=== PATIENT | female | born 1955 | race African-American/Black ===

== ENCOUNTER → 2016-12-28 | Outpatient (CLI) | payer OTHER ==
[2015-08-09 11:55] VITALS: BP 168/86
[~2016-12-28] MED LIST: CONTRAST GIVEN MC PRN; IOHEXOL 300 MG/ML 75 ML VIAL. IV ONE; LISI10TA2 PO; WARF5TAB7 PO
--- NOTE | 2016-12-28 16:31 | RAD ---
Indication gross hematuria. Multiphase imaging through the abdomen and pelvis was performed (CT urogram). Initially noncontrast images through the abdomen and pelvis were obtained. This was followed by portal venous phase imaging through the kidneys and, finally, delayed images through the abdomen and pelvis. Note is made of a previous examination of the abdomen and pelvis 03/01/2016. 75 cc of Omnipaque 300 was administered intravenously for this examination. No oral contrast was administered. On the initial noncontrast images no renal calculi are seen. No renal mass is appreciated. There is no hydronephrosis hydroureter or definite calcification seen along the course of either ureter. Occasional phleboliths are noted in the pelvis similar to the previous exam. On the portal venous phase images no renal mass is seen. On the delayed images the kidneys remain normal. The visualized ureters appear normal in their course and caliber. The urinary bladder is grossly unremarkable although there are fluid levels compatible with probable blood products in the dependent portion of the urinary bladder. If urinary bladder pathology is suspect cystoscopy should be considered. The lung bases are clear. The liver and spleen are unremarkable and the gallbladder appears grossly normal. No adrenal pathology is seen. The pancreas appears unremarkable. No acute finding in the abdomen or pelvis is seen. IMPRESSION: No acute finding seen in the abdomen or pelvis. Unremarkable kidneys. Probable blood products (given the history) in the dependent portion of the urinary bladder PQRS Compliance Statement: One or more of the following individualized dose reduction techniques were utilized for this examination: 1. Automated exposure control 2. Adjustment of the mA and/or kV according to patient size 3. Use of iterative reconstruction technique
== END | disposition home or self-care (01) ==
LOC: CT 14:39
PROVIDERS: ATTEND Nurse Practitioner Adult Health
DX: F19.20 Other psychoactive substance dependence, uncomplicated (principal); R31.0 Gross hematuria
CPT/HCPCS: 74178; Q9967

== ENCOUNTER 2017-01-25 15:35 | Emergency (ER) | payer OTHER ==
[~2017-01-25] VITALS: Ht 167.6 cm; Wt 73.6 kg
[~2017-01-25 15:35] MED LIST changes: -CONTRAST GIVEN MC PRN; -IOHEXOL 300 MG/ML 75 ML VIAL. IV ONE
--- NOTE | 2017-01-25 16:01 | RAD ---
Indication severe headache. Noncontrast images of the head were obtained. The calvarium appears unremarkable. The visualized paranasal sinuses appear normal. There is no subdural or epidural hematoma. The ventricles and sulci are normal. There is no mass or midline shift. No hemorrhage is seen. Acute finding is not apparent. IMPRESSION: No acute finding seen on noncontrast CT images Of the head PQRS Compliance Statement: One or more of the following individualized dose reduction techniques were utilized for this examination: 1. Automated exposure control 2. Adjustment of the mA and/or kV according to patient size 3. Use of iterative reconstruction technique
[2017-01-25 16:05] VITALS: BP 182/86
[2017-01-25 16:19] LABS: BASO % 1 % (0-3); EOS % 1 % (0-3); HEMATOCRIT 39.1 % (36.0-47.0); LYMPH # 1.5 x10^3/uL (1.0-4.8); LYMPH % 33 % (24-48); MEAN CORPUSCULAR HEMOGLOBIN 30 pg (25-35); MEAN CORPUSCULAR HGB CONC 33 g/dL (31-37); MEAN CORPUSCULAR VOLUME 90 fL (79-100); MONO # 0.3 x10^3/uL (0.0-1.1); MONO % 7 % (0-9); NEUT # 2.6 x10^3uL (1.8-7.7); NEUT % 58 % (31-73); PLATELET COUNT 204 x10^3/uL (140-400); RED BLOOD COUNT 4.37 x10^6/uL (3.50-5.40); RED CELL DISTRIBUTION WIDTH 15.1 % (11.5-14.5); WHITE BLOOD COUNT 4.4 x10^3/uL (4.0-11.0)
[2017-01-25 16:27] LABS: CALCIUM 8.9 mg/dL (8.5-10.1); CREATININE 0.7 mg/dL (0.6-1.0); GFR 102.9; POTASSIUM 3.9 mmol/L (3.5-5.1)
--- NOTE | 2017-01-25 16:27 | PHYS DOC ---
Past History Past Medical History: Hypertension, Other Past Surgical History: Hysterectomy, Other Smoking: Non-smoker Alcohol Use: None Drug Use: None Adult General Chief Complaint Chief Complaint: HEADACHE HPI HPI 62-year-old female presenting to the emergency department today with a headache after sustaining a mechanical fall yesterday. She reports hitting her head and being on warfarin therapy. She denies loss of consciousness. Her headache is sharp mild to moderate constant and without alleviating factors. Review of systems is negative for chest pain shortness of breath nausea vomiting abdominal pain. She denies any injuries to her extremities or any other injuries in general. All other review of systems is negative unless otherwise noted in history of present illness. ED course: 62-year-old female sustaining head trauma yesterday without loss of consciousness who is on blood thinner. Patient's neurologic exam is unremarkable. Head CT obtained which was negative. The patient was in discharged home in stable condition. The patient was then discharged home in stable condition to follow up with their primary care physician over the next 2- 3 days. They were to return if their symptoms worsened or if they were concerned for any reason. [id number] discharge instructions and return precautions were given. Patient's questions were answered to their satisfaction. Patient is comfortable plan. Review of Systems Review of Systems SEE ABOVE. Allergies Allergies Allergies Coded Allergies Type Severity Reaction Last Updated Verified No Known Drug Allergies 08/09/15 No Physical Exam Physical Exam Constitutional: Well developed, well nourished, no acute distress, non-toxic appearance. [] HENT: Normocephalic, atraumatic, bilateral external ears normal, oropharynx moist, no oral exudates, nose normal. [] Eyes: PERRLA, EOMI, conjunctiva normal, no discharge. [] Neck: Normal range of motion, no tenderness, supple, no stridor. [] Cardiovascular:Heart rate regular rhythm, no murmur [] Lungs & Thorax: Bilateral breath sounds clear to auscultation [] Abdomen: Bowel sounds normal, soft, no tenderness, no masses, no pulsatile masses. [] Skin: Warm, dry, no erythema, no rash. [] Back: No tenderness, no CVA tenderness. [] Extremities: No tenderness, no cyanosis, no clubbing, ROM intact, no edema. [] Neurologic: Mental status: Awake oriented and alert x3 Cranial nerves: Extraocular movements intact, eyebrows roya bilaterally smile symmetric, uvula elevation, shoulder shrug intact, tongue protrusion normal DTRs: 2+ Sensation: equal and normal in all extremities Strength: 5/5 in upper and lower extremities bilaterally Psychologic: Affect normal, judgement normal, mood normal. [] Current Patient Data Vital Signs Vital Signs Date Time Temp Pulse Resp B/P (MAP) Pulse Ox O2 Delivery O2 Flow Rate FiO2 01/25/17 16:05 98.2 52 20 99 Room Air Lab Results Laboratory Tests Test 01/25/17 16:00 White Blood Count 4.4 x10^3/uL (4.0-11.0) Red Blood Count 4.37 x10^6/uL (3.50-5.40) Hemoglobin 13.0 g/dL (12.0-15.5) Hematocrit 39.1 % (36.0-47.0) Mean Corpuscular Volume 90 fL (79-100) Mean Corpuscular Hemoglobin 30 pg (25-35) Mean Corpuscular Hemoglobin Concent 33 g/dL (31-37) Red Cell Distribution Width 15.1 % (11.5-14.5) H Platelet Count 204 x10^3/uL (140-400) Neutrophils (%) (Auto) 58 % (31-73) Lymphocytes (%) (Auto) 33 % (24-48) Monocytes (%) (Auto) 7 % (0-9) Eosinophils (%) (Auto) 1 % (0-3) Basophils (%) (Auto) 1 % (0-3) Neutrophils # (Auto) 2.6 x10^3uL (1.8-7.7) Lymphocytes # (Auto) 1.5 x10^3/uL (1.0-4.8) Monocytes # (Auto) 0.3 x10^3/uL (0.0-1.1) Eosinophils # (Auto) 0.0 x10^3/uL (0.0-0.7) Basophils # (Auto) 0.0 x10^3/uL (0.0-0.2) EKG EKG [] Radiology/Procedures Radiology/Procedures [] Course & Med Decision Making Course & Med Decision Making Pertinent Labs and Imaging studies reviewed. (See chart for details) [] Dragon Disclaimer Dragon Disclaimer This chart was dictated in whole or in part using Voice Recognition software in a busy, high-work load, and often noisy Emergency Department environment. It may contain unintended and wholly unrecognized errors or omissions. Departure Departure: Impression: Primary Impression: Head injury Additional Impression: Head injury due to trauma Disposition: 01 HOME, SELF-CARE Condition: STABLE Referrals: ASHTYN COX RECEPTION CENTRE MANAGER (PCP) Patient Instructions: Head Injury, Adult, Warfarin, [id number] Additional Instructions: Thank you for allowing us to participate in your care today. Followup with your primary care physician as needed. Call your Primary Doctor tomorrow and inform them of your visit today. If you do not have a primary care provider you can ask for a list of our primary care providers. Return to the emergency department you have any new or concerning findings. This should be evaluated by the primary care physician and any necessary consulting services for continued management within a few days after discharge. Return to emergency room if you have any new or concerning symptoms including but not limited to fever, chills, nausea, vomiting, intractable pain, any new rashes, chest pain, shortness of air, uncontrolled bleeding, difficulty breathing, and/or vision loss. Problem Qualifiers JENNY MCKENNA MD Jan 25, 2017 16:27
== END 2017-01-25 16:59 | disposition home or self-care (01) ==
LOC: ER 15:35
DX: S09.90XA Unspecified injury of head, initial encounter (principal); I10 Essential (primary) hypertension; W19.XXXA Unspecified fall, initial encounter; Y93.89 Activity, other specified; Y99.8 Other external cause status; Y92.89 Other specified places as the place of occurrence of the external cause
CPT/HCPCS: 36415; 70450; 80048; 85027; 85610; 85730; 99285-25

== ENCOUNTER → 2017-03-14 | Outpatient (CLI) | payer OTHER ==
--- NOTE | 2017-03-14 15:36 | RAD ---
Indication swelling of the calf. Pain. Elevated d-dimer. Grayscale color Doppler and spectral imaging was performed. The examination was targeted to the veins of the left lower extremity. The common femoral, femoral and popliteal vessels demonstrate normal flow compressibility and augmentation. No thrombus is seen. The visualized calf veins appeared unremarkable. The right common femoral vein was normal. Note was made during the examination of mild diffuse soft tissue swelling as well as mild adenopathy in the left groin. IMPRESSION: Negative left lower extremity venous analysis for DVT
== END | disposition home or self-care (01) ==
LOC: US 13:38
PROVIDERS: ATTEND Family Medicine
DX: L03.116 Cellulitis of left lower limb (principal); M79.605 Pain in left leg; M79.89 Other specified soft tissue disorders
CPT/HCPCS: 93971

== ENCOUNTER → 2017-09-25 | Outpatient (CLI) | payer BC, OTHER ==
[2017-04-12 09:02] VITALS: BP 142/79
[~2017-09-25] MED LIST changes: +ESTR0.5T PO; +LISI1TAB5 PO; +WARF-31 PO; -WARF5TAB7 PO; +WARF7.5T6 PO
--- NOTE | 2017-09-26 11:31 | RAD ---
DATE: September 25, 2017 EXAM: MAMMO JOHN SCREENING BILATERAL HISTORY: Screening study. History of benign left biopsy in 2016 COMPARISON: July 27, 2015 and March 01, 2016 and October 05, 2016 This study was interpreted with the benefit of Computerized Aided Detection (CAD). 2-D digital mammographic views of both breasts were performed in the CC and MLO projections. 3-D digital tomosynthesis of both breasts were performed in the CC and MLO projections and reviewed on a computer workstation. FINDINGS: The breast parenchyma is heterogeneously dense. Post biopsy changes of the left breast are stable. There are no dominant suspicious masses, suspicious microcalcifications or evidence of architectural distortion. IMPRESSION: No mammographic indicators for malignancy. BI-RADS CATEGORY: 2 BENIGN FINDING RECOMMENDED FOLLOW-UP: 12M 12 MONTH FOLLOW-UP PQRS compliance statement: Patient information was entered into a reminder system with a target due date September 26, 2018 for the next mammogram. Mammography is a sensitive method for finding small breast cancers, but it does not detect them all and is not a substitute for careful clinical examination. A negative mammogram does not negate a clinically suspicious finding and should not result in delay in biopsying a clinically suspicious abnormality. "Our facility is accredited by the [employer] Mammography Program." The patient's breast density may affect the ability of mammography to detect breast cancer. There are 4 categories of breast density, A, B, C and D. Breast density A means that most of the breast tissue is replaced with adipose tissue and therefore is not dense. Breast density B means that the breast tissue is mildly dense and scattered. Breast density C means that the breast tissue is heterogeneously dense. Breast density D means that the breast tissue is very dense. Breast densities especially C and D may decrease the sensitivity of mammography to detect breast cancer. Therefore, the patient may benefit from 3-D breast mammography (3D breast tomography) as a part of their screening mammogram. Insurance may or may not pay for this additional imaging. The patient's breast density based on today's mammogram is category C.
== END | disposition home or self-care (01) ==
LOC: MAMMO 10:58
PROVIDERS: ATTEND Obstetrics & Gynecology
DX: Z12.31 Encounter for screening mammogram for malignant neoplasm of breast (principal)
CPT/HCPCS: 77063; 77067

== ENCOUNTER 2017-09-26 07:49 | Inpatient (IN) | payer BC, OTHER ==
[~2017-09-26] VITALS: Ht 167.6 cm; Wt 75.7 kg
[~2017-09-26 07:49] MED LIST changes: -ESTR0.5T PO; -LISI1TAB5 PO; -WARF7.5T6 PO
--- NOTE | 2017-09-26 07:53 | PHYS DOC ---
Past History Past Medical History: Hypertension, Other Past Surgical History: Hysterectomy, Other Smoking: Non-smoker Alcohol Use: None Drug Use: None Adult General Chief Complaint Chief Complaint: chest pain HPI HPI Patient is a 62 year old female who presents with substernal chest pressure and nausea. He states around 6 AM she spent 10 minutes creeping windows and approximately an hour later had heavy sensation across her chest that she describes as a 6 out of 10 that's been constant. She denies any shortness of breath and states she feels nauseated and denies any diaphoresis. Nothing makes the discomfort better or worse. She has had her mitral valve replaced by mechanical and 18 years ago [facility]. She is on Coumadin daily. She also takes fosinopril. She follows with Dr. Arce. Review of Systems Review of Systems Constitutional: Denies fever or chills [] Eyes: Denies change in visual acuity, redness, or eye pain [] HENT: Denies nasal congestion or sore throat [] Respiratory: Denies cough or shortness of breath [] Cardiovascular: No additional information not addressed in HPI [] GI: Denies abdominal pain, nausea, vomiting, bloody stools or diarrhea [] : Denies dysuria or hematuria [] Musculoskeletal: Denies back pain or joint pain [] Integument: Denies rash or skin lesions [] Neurologic: Denies headache, focal weakness or sensory changes [] Endocrine: Denies polyuria or polydipsia [] All other systems were reviewed and found to be within normal limits, except as documented in this note. Allergies Allergies Allergies Coded Allergies Type Severity Reaction Last Updated Verified No Known Drug Allergies 08/09/15 No Physical Exam Physical Exam Constitutional: Well developed, well nourished, no acute distress, non-toxic appearance. [] HENT: Normocephalic, atraumatic, bilateral external ears normal, oropharynx moist, no oral exudates, nose normal. [] Eyes: PERRLA, EOMI, conjunctiva normal, no discharge. [] Neck: Normal range of motion, no tenderness, supple, no stridor. [] Cardiovascular: Tachycardic rate with regular rhythm, 3/6 systolic ejection murmur Lungs & Thorax: Bilateral breath sounds clear to auscultation [] Abdomen: Bowel sounds normal, soft, no tenderness, no masses, no pulsatile masses. [] Skin: Warm, dry, no erythema, no rash. [] Back: No tenderness, no CVA tenderness. [] Extremities: No tenderness, no cyanosis, no clubbing, ROM intact, no edema. [] Neurologic: Alert and oriented X 3, normal motor function, normal sensory function, no focal deficits noted. [] Psychologic: Affect normal, judgement normal, mood normal. [] EKG EKG EKG shows sinus bradycardia with a rate of 49 bpm without any concerning ST elevations, T-wave inversions noted in lead 3, aVF, left axis deviation noted, QTC 407 ms, as interpreted by me.[] Radiology/Procedures Radiology/[place] [address] IMAGING REPORT Signed PATIENT: REGINE CARLTON ACCOUNT: [id number] : 1955 LOCATION: ER AGE: 62 SEX: F EXAM STATUS: REG ER ORD. PHYSICIAN: MANDI MCCLAIN MD REASON: chest pain PROCEDURE: PORTABLE CHEST 1V Portable chest, 09/26/2017: History: Chest pain There has been a previous median sternotomy. The left ventricle is mildly prominent. The pulmonary vascularity is normal. No pulmonary infiltrates are seen. There is no evidence of pleural fluid. IMPRESSION: No acute cardiopulmonary abnormality is detected. DICTATED AND SIGNED BY: HARRY DAMON MD DATE: 09/26/17 0843 CC: MANDI MCCLAIN MD; ASHTYN COX NP ~ Impressions: Chest pain History of mitral valve replacement On anticoagulation Course & Med Decision Making Course & Med Decision Making Pertinent Labs and Imaging studies reviewed. (See chart for details) EKG shows T-wave inversions in lead 3 and aVF, chest x-ray initial labs nonacute. Spoke with Dr. Arce whose okay the patient being admitted at [facility] and have a stress test in the morning. 325 aspirin has been given. Spoke Dr. Pearson regarding the patient's EKG, labs, physical exam findings. Patient is being admitted to his service in stable condition at this time. Her pain is down to a 1 with 1 inch Nitropaste, she is complaining of a mild headache therefore Tylenol has been given. Dragon Disclaimer Dragon Disclaimer This electronic medical record was generated, in whole or in part, using a voice recognition dictation system. Departure Departure: Impression: Primary Impression: Chest pain Disposition: ADMITTED INPATIENT Admitting Physician: Zan Barros Condition: STABLE Referrals: ASHTYN COX MANAGER MATERIALS MANAGEMENT (PCP) Problem Qualifiers Primary Impression: Chest pain Chest pain type: unspecified Qualified Codes: R07.9 - Chest pain, unspecified MANDI MCCLAIN MD Sep 26, 2017 07:53
[2017-09-26] MEDS ORDERED: NITROGLYCERIN SUBLINGUAL 0.4 MG BOTTLE OF 25. SL PRN (08:00)
[2017-09-26] MEDS ORDERED: ASPIRIN 81 MG TAB.CHEW PO ONE (08:15)
--- NOTE | 2017-09-26 08:27 | EKG ---
[address] [address] Test Date: 2017-09-26 Test Time: 07:59:42 Pat Name: REGINE CARLTON Department: Room: Gender: F Staff Toxicologist: ALICE : 1955 Requested By: MANDI MCCLAIN Order Number: [id number] Reading MD: Alfredito Smyth Measurements Intervals [place] Rate: 49 P: 0 SD: 158 QRS: -5 QRSD: 88 T: 3 QT: 448 QTc: 407 Interpretive Statements SINUS BRADYCARDIA LEFTWARD AXIS NONSPECIFIC ST-T WAVE CHANGES. RI6.01 No previous ECG available for comparison Electronically Signed On 09-27-2017 12:03:40 FRONT CLERK by Alfredito Smyth
[2017-09-26 08:30] LABS: BASO # 0.1 x10^3/uL (0.0-0.2); BASO % 2 % (0-3); EOS # 0.1 x10^3/uL (0.0-0.7); EOS % 2 % (0-3); HEMATOCRIT 40.6 % (36.0-47.0); HEMOGLOBIN 13.6 g/dL (12.0-15.5); LYMPH # 1.3 x10^3/uL (1.0-4.8); LYMPH % 36 % (24-48); MEAN CORPUSCULAR HEMOGLOBIN 30 pg (25-35); MEAN CORPUSCULAR HGB CONC 34 g/dL (31-37); MEAN CORPUSCULAR VOLUME 89 fL (79-100); MONO # 0.3 x10^3/uL (0.0-1.1); MONO % 8 % (0-9); NEUT # 1.9 x10^3uL (1.8-7.7); NEUT % 53 % (31-73); PLATELET COUNT 247 x10^3/uL (140-400); RED BLOOD COUNT 4.56 x10^6/uL (3.50-5.40); RED CELL DISTRIBUTION WIDTH 14.8 % (11.5-14.5); WHITE BLOOD COUNT 3.7 x10^3/uL (4.0-11.0)
[2017-09-26] MEDS ORDERED: ONDANSETRON PF 4 MG/2 ML VIAL. IV ONE (08:30)
--- NOTE | 2017-09-26 08:46 | RAD ---
Portable chest, 09/26/2017: History: Chest pain There has been a previous median sternotomy. The left ventricle is mildly prominent. The pulmonary vascularity is normal. No pulmonary infiltrates are seen. There is no evidence of pleural fluid. IMPRESSION: No acute cardiopulmonary abnormality is detected.
[2017-09-26 08:49] LABS: ALBUMIN 3.9 g/dL (3.4-5.0); CALCIUM 9.2 mg/dL (8.5-10.1); CREATININE 0.7 mg/dL (0.6-1.0); DIRECT BILIRUBIN 0.1 mg/dL (0.0-0.2); GFR 102.9; MAGNESIUM 2.3 mg/dL (1.8-2.4); POTASSIUM 4.1 mmol/L (3.5-5.1); TOTAL BILIRUBIN 0.3 mg/dL (0.2-1.0); TOTAL PROTEIN 7.9 g/dL (6.4-8.2)
[2017-09-26] MEDS ORDERED: NITROGLYCERIN OINT 1 GM PACKET. TP ONE (09:00)
[2017-09-26 09:37] LABS: AMPHETAMINE/METHAMPHETAMINE NEG (NEG); BARBITURATES NEG (NEG); BENZODIAZEPINES NEG (NEG); CANNABINOIDS NEG (NEG); COCAINE NEG (NEG); METHADONE NEG (NEG); OPIATES NEG (NEG); PHENCYCLIDINE NEG (NEG)
[2017-09-26 09:44] LABS: BILIRUBIN,URINE NEG (NEG); CLARITY,URINE CLEAR; COLOR,URINE YELLOW; GLUCOSE,URINE NEG (NEG)
[2017-09-26 09:45] LABS: BACTERIA,URINE 0 /HPF (0-FEW); NITRITE,URINE NEG (NEG); SQUAMOUS EPITHELIAL CELL,UR FEW /LPF; UROBILINOGEN,URINE 0.2 mg/dL (0.2 mg/dL); WBC,URINE OCC /HPF (0-4)
[2017-09-26] MEDS ORDERED: ONDANSETRON PF 4 MG/2 ML VIAL. IV PRN (10:15)
[2017-09-26] MEDS ORDERED: ACETAMINOPHEN 500 MG TABLET PO ONE (10:30)
[2017-09-26 11:03] VITALS: BP 161/83
[2017-09-26 11:11] VITALS: BP 161/83
[2017-09-26] MEDS ORDERED: WARF7.5T6 PO (12:11)
[2017-09-26] MEDS ORDERED: LISI1TAB5 PO (12:11)
[2017-09-26] MEDS ORDERED: ESTR0.5T PO (12:11)
--- NOTE | 2017-09-26 15:36 | CARD ---
MR#: [id number] Date of Study: 09/26/2017 Ordering Physician: CHIDI AARON, Referring Physician: JENNIFER SHERIDAN, Tech: MAK Almazan APPROVED REPORT EXAM: Two-dimensional and M-mode echocardiogram with Doppler and color Doppler. Other Information Quality : Average INDICATION Chest Pain Mechanical Aortic Valve Replacement (1999) 2D DIMENSIONS Left Atrium(2D)3.3 (1.6-4.0cm)IVSd0.9 (0.7-1.1cm) LVDd4.3 (3.9-5.9cm)PWd1.0 (0.7-1.1cm) LVDs2.5 (2.5-4.0cm)FS (%) 41.9 % SV60.3 ml Aortic Valve AoV Peak Zeb.407.4cm/sAoV VTI80.8cm AO Peak GR.66.4mmHgLVOT Peak Zeb.109.8cm/s LVOT VTI 29.05cmAO Mean GR.31mmHg Mitral Valve MV E Nzgkvjvh23.8cm/sMV DECEL [id number] MV A Gfdewbee82.4cm/sE/A Ratio1.4 LEFT VENTRICLE The left ventricle is normal size. There is normal left ventricular wall thickness. The left ventricu lar systolic function is normal and the ejection fraction is within normal range. The Ejection Fracti on is 60-65%. There is normal LV segmental wall motion. RIGHT VENTRICLE The right ventricle is normal size. There is normal right ventricular wall thickness. The right ventr icular systolic function is normal. ATRIA The left atrium size is normal. The right atrium size is normal. The interatrial septum is intact wit h no evidence for an atrial septal defect or patent foramen ovale as noted on 2-D or Doppler imaging. AORTIC VALVE Doppler and Color Flow revealed trace aortic regurgitation. There is a mechanical aortic valve prosth esis. The prosthetic aortic valve appears well seated. There is moderate stenosis of a mechanicall ao rtic valve on a technically difficult study. The max Pg is 66mg and a mean Pg of 31mmHg. MITRAL VALVE The mitral valve leaflets are calcified. There is no evidence of mitral valve prolapse. There is no m itral valve stenosis. Doppler and Color-flow revealed trace mitral regurgitation. TRICUSPID VALVE The tricuspid valve is normal in structure and function. Doppler and Color Flow revealed moderate tri cuspid regurgitation. There is no tricuspid valve stenosis. PULMONIC VALVE The pulmonary valve is normal in structure and function. Doppler and Color Flow revealed trace pulmon ic valvular regurgitation. There is no pulmonic valvular stenosis. GREAT VESSELS The aortic root is normal in size. The IVC is normal in size and collapses >50% with inspiration. PERICARDIAL EFFUSION There is no evidence of significant pericardial effusion. Critical Notification Critical Value: No <Conclusion> The left ventricle is normal size. The left ventricular systolic function is normal and the ejection fraction is within normal range. The Ejection Fraction is 60-65%. There is a mechanical aortic valve prosthesis. The prosthetic aortic valve appears well seated. There is moderate stenosis of a mechanicall aortic valve on a technically difficult study. The max Pg is 66mg and a mean Pg of 31mmHg. Doppler and Color Flow revealed trace aortic regurgitation. Doppler and Color-flow revealed trace mitral regurgitation. Doppler and Color Flow revealed moderate tricuspid regurgitation. Signed by : Alfredito Smyth MD Electronically Approved : 09/26/2017 15:36:25
[2017-09-26 16:03] VITALS: BP 133/67
--- NOTE | 2017-09-26 18:43 | HP ---
ADMIT DATE: 09/26/2017 HISTORY OF PRESENT ILLNESS: A 62-year-old -[place] female came in through the Emergency Room. She has been having chest pain, substernal chest pressure for the last 3-4 hours prior to admission. She was doing some activity when she felt his heavy sensation across her chest, described as 6/10, came in through the Emergency Room and was given some nitro, which seemed to help her. She is normally followed by Dr. Lim. The patient denies any diaphoresis, but did feel some nausea and as a result of this, the patient was admitted to the hospital for rule out UT protocol. Discussion with Dr. Lim to keep her here till a stress test could be entertained for her. The patient has a mechanical heart valve due to a hole in her heart, history of hypertension, chronic warfarin therapy. MEDICATIONS: Estradiol, lisinopril 20 mg a day, tramadol ____ p.r.n., Setopress wraps to her legs, warfarin 3 mg daily. ALLERGIES: No known allergies. PAST SURGICAL HISTORY: Complete hysterectomy, mechanical heart valve. FAMILY HISTORY: Father of heart disease. Mother alive. Sister has a history of cancer. SOCIAL HISTORY: The patient denies smoking, alcohol or drug use. The patient is a full code. REVIEW OF SYSTEMS: As noted with chest pain and the patient notes no shortness of breath. Denies any headaches, visual change, blurred vision, double vision. Denies any melena, hematochezia, or hematemesis and neurologically intact. PHYSICAL EXAMINATION: GENERAL: Pleasant -[place] female, in no apparent distress. VITAL SIGNS: Blood pressure 130/70, respiratory rate 20, pulse 50, and afebrile. HEENT: The patient's head was atraumatic, normocephalic. Eyes: PERRLA without jaundice. Mouth and throat were normal. NECK: Supple, no JVD or thyromegaly. LUNGS: Clear to auscultation. CARDIOVASCULAR: Regular sinus rhythm, S1, S2, without murmur, rub, thrill, extra heart sound, click of the mitral valve, mechanical valve. ABDOMEN: Soft, nontender. EXTREMITIES: No clubbing, cyanosis nor edema. NEUROLOGIC: The patient was alert and oriented x 3. Speech fluent, spontaneous, appropriate. Cranial nerves 2 to 12 are grossly intact. IMPRESSION: Chest pain, history of mitral valve replacement, on chronic anticoagulation. PLAN: The patient will be admitted to rule out UT protocol and consult with Cardiology, make further evaluation on her as indicated. JENNIFER SHERIDAN MD DR: TAMIKA/narda JOB#: [id number] / [id number]
[2017-09-26] MEDS ORDERED: traMADol 50 MG TABLET PO PRN (19:45)
[2017-09-26 19:51] VITALS: BP 121/68
[2017-09-26] MEDS ORDERED: PNEUMOC CONJ VACC 23-VALENT 0.5 ML VIAL. VAX IM ONE (21:00)
[2017-09-26] MEDS ORDERED: ACETAMINOPHEN 325 MG TABLET PO PRN (21:30)
[2017-09-26 22:42] VITALS: BP 116/72
[2017-09-27 05:07] VITALS: BP 131/65
[2017-09-27] MEDS ORDERED: ESTRADIOL 1 MG TABLET PO SCH (09:00)
[2017-09-27] MEDS ORDERED: LISINOPRIL 20 MG TABLET PO SCH (09:00)
[2017-09-27] MEDS ORDERED: hydroCHLOROthiazide 12.5 MG CAPSULE PO SCH (09:00)
[2017-09-27] MEDS ORDERED: NON FORMULARY ITEM (Lisinopril/Hydrochlorothiazide (Lisinopril-Hctz 20-12.5 Mg Tab) 1 TAB) PO SCH (09:00)
--- NOTE | 2017-09-27 09:26 | PDOC2 ---
CONSULT Date of Admission DATE: 09/27/17 TIME: 09:26 Reason for Consult: chest pain Problem List Problems Medical Problems: (1) Chest pain Status: Acute History of Present Illness Ms King is a 62 year old female with history of AVR and hypertension. She presents with complaints of chest pain that started after scraping ice from her car yesterday am. She describes an heaviness or feeling of "someone standing on her chest" with some associated dyspnea. She presented to the ED where her discomfort resolved after application of nitropaste. She reports off and on similar but less intense symptoms that last about 10 minutes and occur with exertion. Typically if she is rushing or over exerting. These symptoms resolve spontaneously with decreased activity. She does state she recently attempted to get back to exercising but after about 15 minutes doing a step exercise became very nauseated and was forced to stop. She denies any palpitations, lightheadedness or syncope. She denies limitations in day to day normal activities with the exceptions as listed above. Past Medical History Echo 09/26/17 The left ventricle is normal size. The left ventricular systolic function is normal and the ejection fraction is within normal range. The Ejection Fraction is 60-65%. There is a mechanical aortic valve prosthesis. The prosthetic aortic valve appears well seated. There is moderate stenosis of a mechanical aortic valve on a technically difficult study. The max Pg is 66mg and a mean Pg of 31mmHg. Doppler and Color Flow revealed trace aortic regurgitation. Doppler and Color-flow revealed trace mitral regurgitation. Doppler and Color Flow revealed moderate tricuspid regurgitation. Aortic valve replacement with mechanical valve, on Coumadin, Hypertension, CHANELL Cardiovascular: Other (AVR) Past Surgical History AVR, hysterectomy Family History no significant coronary disease Social History non smoker, no significant ETOH, no illicit drugs Current Medications Current Medications Aspirin (Children'S Aspirin) 324 mg 1X ONCE PO Last administered on 09/26/17at 08:45; Start 09/26/17 at 08:15; Stop 09/26/17 at 08:16; Status DC Nitroglycerin (Nitrostat) 0.4 mg PRN Q5MIN PRN SL CP RATING > 1/10; Start 09/26 at 08:00; Stop 09/27/17 at 07:59; Status DC Ondansetron HCl (Zofran) 4 mg 1X ONCE IV Last administered on 09/26/17at 08:46 ; Start 09/26/17 at 08:30; Stop 09/26/17 at 08:31; Status DC Nitroglycerin (Nitro-Bid Oint) 1 inch 1X ONCE TP Last administered on at 08:49; Start 09/26/17 at 09:00; Stop 09/26/17 at 09:01; Status DC Ondansetron HCl (Zofran) 4 mg PRN Q4HRS PRN IV NAUSEA/VOMITING; Start 09/26/17 at 10:15; Stop 09/27/17 at 10:14 Acetaminophen (Tylenol) 1,000 mg 1X ONCE PO Last administered on 09/26/17at 10: 24; Start 09/26/17 at 10:30; Stop 09/26/17 at 10:31; Status DC Warfarin Sodium (Coumadin) 7.5 mg DAILY16 PO ; Start 09/27/17 at 16:00 Estradiol (Estrace) 0.5 mg DAILY PO Last administered on 09/27/17at 09:06; Start 09/27/17 at 09:00 Non-Formulary Medication 1 tab DAILY PO ; Start 09/27/17 at 09:00; Stop at 09:00; Status DC Warfarin Sodium (Coumadin Per Physician) 1 each PRN DAILY PRN MC SEE COMMENTS; Start 09/26/17 at 16:15 Lisinopril (Prinivil) 20 mg DAILY PO Last administered on 09/27/17at 09:07; Start 09/27/17 at 09:00 Hydrochlorothiazide (Microzide) 12.5 mg DAILY PO Last administered on at 09:05; Start 09/27/17 at 09:00 Tramadol HCl (Ultram) 50 mg PRN Q4HRS PRN PO PAIN; Start 09/26/17 at 19:45 Pneumococcal Polyvalent Vaccine (Pneumovax 23) 0.5 ml ONCE ONCE VAX IM ; Start 09/26/17 at 21:00; Stop 09/26/17 at 21:01; Status DC Acetaminophen (Tylenol) 650 mg PRN Q6HRS PRN PO PAIN / TEMP Last administered on 09/26/17at 21:45; Start 09/26/17 at 21:30 Active Scripts Active Reported Warfarin Sodium 7.5 Mg Tablet 1 Tab PO DAILY Estradiol 0.5 Mg Tablet 1 Tab PO DAILY Lisinopril-Hctz 20-12.5 Mg Tab (Lisinopril/Hydrochlorothiazide) 1 Each Tablet 1 Tab PO DAILY Allergies: Coded Allergies: No Known Drug Allergies (Unverified , 08/09/15) Review of System as per HPI or negative General: Alert, Oriented X3, Cooperative, No acute distress HEENT: Atraumatic, EOMI, Mucous membr. moist/pink Lungs: Clear to auscultation, Normal air movement Heart: Regular rate, Normal S1, Normal S2, Other (+systolic murmur 2.6, no gallops, clicks or rubs) Abdomen: Normal bowel sounds, Soft, No tenderness Extremities: No cyanosis, No edema, Normal pulses Neuro: Normal speech, Strength at 5/5 X4 ext, Cranial nerves 3-12 NL Psych/Mental Status: Mental status NL, Mood NL VITALS Vital Signs Date Time Temp Pulse Resp B/P (MAP) Pulse Ox O2 Delivery O2 Flow Rate FiO2 09/27/17 09:07 54 131/65 09/27/17 05:07 97.8 18 99 Room Air Labs Laboratory Tests Test 09/26/17 08:12 09/26/17 09:10 09/26/17 13:25 09/26/17 18:55 White Blood Count 3.7 x10^3/uL (4.0-11.0) Red Blood Count 4.56 x10^6/uL (3.50-5.40) Hemoglobin 13.6 g/dL (12.0-15.5) Hematocrit 40.6 % (36.0-47.0) Mean Corpuscular Volume 89 fL (79-100) Mean Corpuscular Hemoglobin 30 pg (25-35) Mean Corpuscular Hemoglobin Concent 34 g/dL (31-37) Red Cell Distribution Width 14.8 % (11.5-14.5) Platelet Count 247 x10^3/uL (140-400) Neutrophils (%) (Auto) 53 % (31-73) Lymphocytes (%) (Auto) 36 % (24-48) Monocytes (%) (Auto) 8 % (0-9) Eosinophils (%) (Auto) 2 % (0-3) Basophils (%) (Auto) 2 % (0-3) Neutrophils # (Auto) 1.9 x10^3uL (1.8-7.7) Lymphocytes # (Auto) 1.3 x10^3/uL (1.0-4.8) Monocytes # (Auto) 0.3 x10^3/uL (0.0-1.1) Eosinophils # (Auto) 0.1 x10^3/uL (0.0-0.7) Basophils # (Auto) 0.1 x10^3/uL (0.0-0.2) Prothrombin Time 22.1 SEC (9.4-11.4) Prothromb Time International Ratio 2.2 (0.9-1.1) Activated Partial Thromboplast Time 31 SEC (23-33) Sodium Level 142 mmol/L (136-145) Potassium Level 4.1 mmol/L (3.5-5.1) Chloride Level 105 mmol/L (98-107) Carbon Dioxide Level 32 mmol/L (21-32) Anion Gap 5 (6-14) Blood Urea Nitrogen 17 mg/dL (7-20) Creatinine 0.7 mg/dL (0.6-1.0) Estimated GFR (Cockcroft-Gault) 102.9 Glucose Level 93 mg/dL (70-99) Calcium Level 9.2 mg/dL (8.5-10.1) Magnesium Level 2.3 mg/dL (1.8-2.4) Total Bilirubin 0.3 mg/dL (0.2-1.0) Direct Bilirubin 0.1 mg/dL (0.0-0.2) Aspartate Amino Transf (AST/SGOT) 32 U/L (15-37) Alanine Aminotransferase (ALT/SGPT) 30 U/L (14-59) Alkaline Phosphatase 61 U/L (46-116) Creatine Kinase 194 U/L (26-192) Creatine Kinase MB (Mass) 1.6 ng/mL (0.0-3.6) Creatine Kinase MB Relative Index 0.8 % (0-4) Troponin I Quantitative < 0.017 ng/mL (0-0.055) < 0.017 ng/mL (0-0.055) < 0.017 ng/mL (0-0.055) JL-Uqn-B-Type Natriuretic Peptide 81 pg/mL (0-124) Total Protein 7.9 g/dL (6.4-8.2) Albumin 3.9 g/dL (3.4-5.0) Lipase 115 U/L (73-393) Urine Collection Type Unknown Urine Color Yellow Urine Clarity Clear Urine pH 7.0 Urine Specific [place] 1.010 Urine Protein Neg (NEG-TRACE) Urine Glucose (UA) Neg mg/dL (NEG) Urine Ketones (Stick) Neg mg/dL (NEG) Urine Blood Small (NEG) Urine Nitrite Neg (NEG) Urine Bilirubin Neg (NEG) Urine Urobilinogen Dipstick 0.2 mg/dL (0.2 mg/dL) Urine Leukocyte Esterase Neg (NEG) Urine RBC 3-5 /HPF (0-2) Urine WBC Occ /HPF (0-4) Urine Squamous Epithelial Cells Few /LPF Urine Bacteria 0 /HPF (0-FEW) Urine Opiates Screen Neg (NEG) Urine Methadone Screen Neg (NEG) Urine Barbiturates Neg (NEG) Urine Phencyclidine Screen Neg (NEG) Urine Amphetamine/Methamphetamine Neg (NEG) Urine Benzodiazepines Screen Neg (NEG) Urine Cocaine Screen Neg (NEG) Urine Cannabinoids Screen Neg (NEG) Urine Ethyl Alcohol Neg (NEG) Images EKG - sinus rhythm, non specific st/t abnormalities Assessment/Plan 1. Chest pain suspicious for exertional angina - [place] ruled out, non specific EKG changes. Echo with normal LVEF. Suggest MPI today. 2. hypertension - resume home medications. 3. hyperlipidemia - check lipids 4. mechanical aortic valve - INR therapeutic. Problems: CHIDI AARON APRN Sep 27, 2017 09:26
[2017-09-27 10:23] VITALS: BP 135/72
[2017-09-27] MEDS ORDERED: REGADENOSON 0.4 MG/5 ML DISP.SYRIN. IV ONE (13:00)
[2017-09-27 15:00] VITALS: BP 135/72
[2017-09-27] MEDS ORDERED: WARFARIN 7.5 MG TABLET. PO SCH (16:00)
--- NOTE | 2017-09-27 17:35 | RAD ---
MR#: [id number] Date of Study: 09/27/2017 Ordering Physician: CHIDI EDEN, Referring Physician: ROGERS BRIONES Tech: RT Thanh (R) (N) APPROVED REPORT Test Type: Pharmacological Stress Nurse/Tech: Beth Eden Test Indications: Dyspnea Cardiac History: 1999 mitral valve replacement Resting Heart Rate: 52 bpm Resting Blood Pressure: 167/68mmHg Pretest Chest Pain: None Pharm. Details Pharmacologic stress testing was performed using 0.4mg per 5ml of regadenoson given intravenously ove r 7-10 seconds. Stress Symptoms CP, T wave inversion in III, AVF, v3-v6 POST EXERCISE Reason for Termination: Infusion complete Max HR: 145/69 bpm Arrhythmia: No. INTERPRETATION Stress EKG Conclusion: No evidence of stress induced EKG changes to suggest ischemia. Imaging Protocol IMAGE PROTOCOL: Rest Tc-99m/stress Tc-99m 1 day Rest: Stress: Viability: Radiopharm.Tc99m EngdlfeghBi90d Sestamibi [id number] 33mCi Duration 20min. 15min. Img Date 09/27/2017 09/27/2017 Inj-Img Snyd15wrm. 45min. Rest Admin Site:IV - Left AntecubitalAdministrator: RT Thanh (R)(N) Stress Admin Site: IV - Left AntecubitalAdministrator: RT Thanh (R)(N) STRESS DATA End Diast. Vol.99.0mlAv. Heart Rate59.0bpm LVEDV index BSA2.0mlCardiac Output0.1L/min End Syst. Vol.18.0mlCO Index BSA4.8L/min LVESV index BSA0.0mlMyocardial Swee196.0g Eject. Ctekmkmh91.0% Stress Rates Pk. Fill Rate3.14EDV/secLVtime Pk. Fill 220.07msec Pk. Empty Rate4.28ESV/secLVtime Pk. Dypzz007.70msec / Pk. Fill1.47EDV/sec Stress Scores Regional WT0.00Summed WT0.00 Regional WM0.00Summed WM0.00 The rest and stress images show normal perfusion, normal contraction and thickening. LV Perf. Quant 17 Seg. SSS2.00 17 Seg. SRS2.00 17 Seg. SDS1.00 Stress Defect Extent (% LAD)0.00Rest Defect Extent (% LAD)0.00Rev. Defect Extent (% LAD)0.00 Stress Defect Extent (% LCX) 5.00Rest Defect Extent (% LCX)17.50Rev. Defect Extent (% LCX)0.00 Stress Defect Extent (% RCA)0.00Rest Defect Extent (% RCA)0.00Rev. Defect Extent (% RCA)0.00 Stress Defect Extent (% ALICE)0.90Rest Defect Extent (% ALICE)3.00Rev. Defect Extent (% ALICE)0.00 Other Information Quality:Good Risk Assessment: Low Risk Conclusion 1. No evidence of EKG changes with stress testing. 2. Normal perfusion at stress/rest. 3. Low risk study. 4. EF > 60%. Signed by : Bobby Elizabeth, Electronically Approved : 09/27/2017 17:35:20
--- NOTE | 2017-09-27 21:40 | PN ---
DATE: 09/27/2017 SUBJECTIVE: The patient was admitted with chest pain. She will be having her second part of her MPI today and then make the determination whether to transfer or not. VITAL SIGNS: Otherwise, her vital signs are basically stable. Blood pressure 135/70, respiratory 20, pulse 53, afebrile. GENERAL: The patient is alert and oriented. LUNGS: Diminished, but clear. CARDIOVASCULAR: Regular sinus rhythm. ABDOMEN: Soft, nontender. Answered all her questions to the patient and spouse and she will use very first and second part of her MPI, then hopefully ready for discharge or transfer depending on the results. IMPRESSION: Angina. PLAN: As above. JENNIFER SHERIDAN MD DR: TAMIKA/narda JOB#: [id number] / [id number]
== END 2017-09-27 18:47 | disposition home or self-care (01) | DRG 311 ==
LOC: ER 07:49 → 1 SOUTH 09:55 → ER 10:30
PROVIDERS: ADMIT Family Medicine; ATTEND Family Medicine
DX: I20.9 Angina pectoris, unspecified (principal); E78.5 Hyperlipidemia, unspecified; G47.33 Obstructive sleep apnea (adult) (pediatric); I10 Essential (primary) hypertension; Z79.01 Long term (current) use of anticoagulants; Z80.9 Family history of malignant neoplasm, unspecified; Z90.710 Acquired absence of both cervix and uterus; Z95.2 Presence of prosthetic heart valve; Z82.49 Family history of ischemic heart disease and other diseases of the circulatory system
CPT/HCPCS: 36415; 71045; 78452; 80048; 80076; 80307; 81001; 82553; 83690; 83735; 83880; 84484; 85025; 85610; 85730; 93005; 93017; 93306; 96374; 96375; 96376; A9500; J2405; J2785; 99285-25; G0479

== ENCOUNTER → 2017-12-19 | Outpatient (CLI) | payer BC, OTHER ==
[~2017-12-19] MED LIST changes: +ESTR0.5T PO; +LISI1TAB5 PO; +WARF7.5T45 PO
--- NOTE | 2017-12-19 16:21 | RAD ---
Clinical Indication: Left lower extremity pain and swelling Technique: Study is dated December 19, 2017. Grayscale, color flow and spectral waveform analysis was performed of the left lower extremity with and without compression. Findings: There is normal compressibility of all visualized vein segments. No evidence of DVT is present on grayscale or color images. There is normal phasicity of waveform. There is normal augmentation. Impression: No evidence of deep vein thrombosis. Electronically signed by: Keon Kumar MD (12/19/2017 4:17 PM) [id number]
== END | disposition home or self-care (01) ==
LOC: US 15:31
PROVIDERS: ATTEND Physician Assistant
DX: M79.89 Other specified soft tissue disorders (principal); M79.605 Pain in left leg; I10 Essential (primary) hypertension; E78.5 Hyperlipidemia, unspecified
CPT/HCPCS: 93971

== ENCOUNTER → 2018-01-26 | Outpatient (CLI) | payer BC, OTHER ==
--- NOTE | 2018-01-26 16:36 | RAD ---
EXAM: Head and cervical spine CT without contrast. HISTORY: Fall. TECHNIQUE: Computed tomographic images the head and cervical spine were obtained without contrast. *One or more of the following individualized dose reduction techniques were utilized for this examination: 1. Automated exposure control. 2. Adjustment of the mA and/or kV according to patient size. 3. Use of iterative reconstruction technique. COMPARISON: 01/25/2017. FINDINGS: Head: There is no hemorrhage. There is no mass effect or midline shift. There is no hydrocephalus. The boo-white matter differentiation pattern is intact. No calvarial lesion is seen. The orbits and visualized paranasal sinuses mastoid air cells are unremarkable. Cervical spine: There is mild cervical kyphosis. There is mild anterolisthesis of C3 on C4 and C7 on T1. 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 There is degenerative endplate remodeling with disc space narrowing, osteophytosis and Schmorl's node formation at C4-C5, C5-C6 and C6-C7. There is facet arthropathy at multiple levels. There is no fracture. The lung apices demonstrate minimal pleural parenchymal scarring. At C2-C3, there is mild left facet arthropathy. There is no stenosis. At C3-C4, there is a disc bulge and endplate remodeling. There is mild right and moderate left facet arthropathy. There is no stenosis. At C4-C5, there is a disc bulge and endplate remodeling. There is right uncovertebral arthropathy. There is ossification of the posterior ligament. There is mild right foraminal stenosis. At C5-C6, there is a disc bulge and endplate remodeling. There is uncovertebral arthropathy. There is ossification of the posterior longitudinal ligament. There is mild right foraminal stenosis. At C6-C7, there is a disc bulge and endplate remodeling. There is uncovertebral arthropathy. There is ossification of the ligament. There is mild left foraminal stenosis. IMPRESSION: 1. No acute intracranial finding or evidence of acute cervical spine trauma. 2. Subtle areas of decreased attenuation within the cerebral white matter, likely due to chronic small vessel disease. 3. Degenerative change throughout the cervical spine, described above. Electronically signed by: Neha Rice MD (01/26/2018 4:32 PM) [place] [id number]
== END | disposition home or self-care (01) ==
LOC: CT 16:04
PROVIDERS: ATTEND Physician Assistant
DX: S09.8XXD Other specified injuries of head, subsequent encounter (principal); M12.88 Other specific arthropathies, not elsewhere classified, other specified site; M48.02 Spinal stenosis, cervical region; M40.292 Other kyphosis, cervical region; X58.XXXD Exposure to other specified factors, subsequent encounter
CPT/HCPCS: 70450; 72125